=== PATIENT | male | born 1965 ===

== ENCOUNTER 2018-11-05 03:41 | Emergency (ER) | payer BC, SELFPAY ==
[2018-11-05 03:54] VITALS: BP 151/93; PULSE 71; RESP 22; TEMP 37; O2SAT 98; BMI 30.5
--- NOTE | 2018-11-05 03:56 | ED.GENADULT ---
HPI - General Adult General Chief complaint: Abdominal Pain Stated complaint: right side discomfort Time Seen by Provider: 11/05/18 03:45 Source: patient Mode of arrival: Ambulatory Limitations: no limitations History of Present Illness HPI narrative: Patient is a 53-year-old male here for evaluation of right upper quadrant abdominal pain. Patient states that it started this evening. Has had some nausea but no vomiting. No bowel symptoms. No urinary symptoms. Has had prior abdominal surgeries. Had a intussusception when he was a child. Still has his gallbladder but has had his appendix removed. States it is worse with palpation. Not worse with breathing. Related Data Home Medications Medication Instructions Recorded Confirmed mycophenolate mofetil 500 mg PO DAILY 11/05/18 11/05/18 Previous Rx's Medication Instructions Recorded ondansetron 4 mg PO Q6H PRN #14 tab 11/05/18 tramadol [Ultram] 50 mg PO Q6H PRN #14 tab 11/05/18 Allergies Allergy/AdvReac Type Severity Reaction Status Date / Time No Known Drug Allergies Allergy Verified 11/05/18 03:58 Review of Systems Constitutional Constitutional: Denies fever(s) Cardiovascular Cardiovascular: Denies chest pain and Denies dyspnea Respiratory Respiratory: Denies dyspnea Gastrointestinal Gastrointestinal: Reports abdominal pain, Denies change in stool character, Reports nausea and Denies vomiting Genitourinary Genitourinary: Denies dysuria Musculoskeletal Musculoskeletal: Denies myalgias and Denies arthralgias Integumentary/Breasts Skin/Breast: Denies lesions and Denies rash Neurologic Neurologic: Denies behavioral changes Psychiatric Psychiatric: Denies behavioral changes Hematologic/Lymphatic Hematologic/Lymphatic: Denies easy bleeding and Denies easy bruising [facility] Medical History Intussusception (Acute) Surgical History Hx of appendectomy (Acute) Social History Smoking Status: Never smoker Social History Smoking Status: Never smoker Exam Initial Vital Signs Initial Vital Signs: Vital Signs Temperature 98.6 F 11/05/18 03:54 Pulse Rate 71 11/05/18 03:54 Respiratory Rate 22 11/05/18 03:54 Blood Pressure 151/93 H 11/05/18 03:54 Pulse Oximetry 98 11/05/18 03:54 Const General: cooperative, well developed and well groomed Orientation: alert, awake and oriented x3 HENMT Head: normal to inspection and normocephalic Resp Effort & Inspection: normal respiratory effort Auscultation: clear to auscultation bilaterally Cardio Rate: regular rate Rhythm: regular rhythm GI Inspection: non-distended Palpation: soft, No firm and tender (Right upper quadrant positive Whiting sign) Skin Lesions: no lesions Rashes: no rashes Neuro General: alert, awake and oriented x3 Cognition: normal cognition Speech: speech normal Motor: muscle tone normal throughout Sensory Exam: no sensory deficits noted Extrem General: normal to inspection and capillary refill normal Psych Appearance: grossly normal and well kempt Course Orders Ordered: ED Orders 11/05/18 03:54 EKG-12 Lead Stat 11/05/18 04:10 Complete Blood Count AUTO DIFF Stat Comprehensive Metabolic Panel Stat Lipase Stat 11/05/18 04:23 US abdomen limited Stat Discontinued Medications Ketorolac Tromethamine (Toradol) 30 mg IV NOW ONE Stop: 11/05/18 04:24 Last Admin: 11/05/18 05:03 Dose: 30 mg Documented by: GEORGINA Vital Signs Vital signs: Vital Signs - 8 hr 11/05/18 03:54 11/05/18 05:08 Temperature 98.6 F Pulse Rate 71 79 Respiratory Rate 22 20 Blood Pressure 151/93 H Blood Pressure [Right Arm] 142/89 H Pulse Oximetry 98 98 Medical Decision Making Lab Data Lab results reviewed: Yes I reviewed the patient's lab results. Result diagrams: 11/05/18 04:10 11/05/18 04:10 Labs: Lab Results 11/05/18 11/05/18 11/05/18 Range/Units 04:10 04:10 04:10 WBC 10.7 (4.5-11.0) X10^3/uL RBC 4.99 (4.5-5.9) X10^6/uL Hgb 15.2 (13.5-17.5) g/dL Hct 44.4 (41-53) % MCV 89.1 (80-100) fL MCH 30.4 (26-34) PG MCHC 34.2 (30-36) % RDW 14.7 (11.6-14.8) % Plt Count 237 (150-400) X10^3/uL Neut % (Auto) 66.7 (50-75) % Lymph % (Auto) 22.5 L (25-40) % [place]y % (Auto) 9.1 (3-14) % Eos % (Auto) 1.3 L (2-4) % Baso % (Auto) 0.4 (0-2) % Neut # (Auto) 7100 H (1200-4160) /uL Lymph # (Auto) 2400 (9360-4053) /uL [place]y # (Auto) 1000 H (0-900) /uL Eos # (Auto) 100 (0-450) /uL Baso # (Auto) 0 (0-100) /uL Sodium 138 (137-145) mmol/L Potassium 3.9 (3.4-5.1) mmol/L Chloride 100 (98-107) mmol/L Carbon Dioxide 28 (22-32) mmol/L BUN 13 (9-20) mg/dL Creatinine 0.70 (0.66-1.25) mg/dL Estimated GFR > 60.0 (>60) mL/min BUN/Creatinine Ratio 18.6 (6-22) Glucose 103 H (70-100) mg/dL Calcium 9.1 (8.4-10.2) mg/dL Total Bilirubin 0.6 (0.2-1.3) mg/dL AST 33 (17-59) IU/L ALT 34 (21-72) IU/L Alkaline Phosphatase 99 (38-126) U/L Total Protein 7.1 (6.3-8.2) g/dL Albumin 4.0 (3.5-5.0) g/dL Globulin 3.1 (1.7-4.1) g/dL Albumin/Globulin Ratio 1.3 (1.0-2.8) Lipase 109 (23-300) U/L Imaging Data US - abdomen: Radiologist's impression: Preliminary read Mobile gallstones and sludge within the gallbladder. Wall thickening up to 5 mm. Positive Whiting sign. No pericholecystic fluid. Common bile duct is not seen. Early acute cholecystitis ECG Data Attestation: I personally reviewed and interpreted this ECG as follows: Prior ECG tracings: not available for review Interpretation: Sinus rhythm Ventricular rate of 67 Left axis deviation Right bundle branch block Normal QRS Normal QTC Nonspecific ST T wave changes MDM Narrative Medical decision making narrative: Patient is symptom-free after the Toradol. Is afebrile, normal white blood cell, normal LFTs, normal lipase, ultrasound does show gallstones. Wall thickening of 5 mm. No pericholecystic fluid. Unable to visualize the common bile duct. Patient is visiting this area from [place]. I did discuss the case with with General surgery who did agree with the plan of providing good return precautions, symptom treatment, and having the patient follow up with his primary provider when he returns home. Informed the patient that he should avoid foods that have crease in oils. Will send home with symptom treatment. Was told to come back if he starts to have worsening pain or fevers. Informed him that later today he should call his primary provider even before he returns home to establish a follow-up for when he returns home. Patient expressed understanding and agreement with plan. Discharge Plan Departure Patient Disposition: Home Clinical Impression: Biliary colic Instructions: Gallstones (Alternative Therapy), DI for Gallstones Activity Restrictions/Additional Instructions: I recommend that later today you contact your primary care provider even before you return home to establish a follow-up visit when you return home. Also recommend that you eat a low-fat diet and avoid foods that have grease and oil. Use the medications as needed and as directed. Return to the emergency department for any new symptoms, worsening symptoms, fevers, inability to tolerate oral intake, or any other concerning symptoms. Prescriptions: New ondansetron 4 mg tablet,disintegrating 4 mg PO Q6H PRN (Reason: nausea and vomiting) Qty: 14 RF: 0 tramadol [Ultram] 50 mg tablet 50 mg PO Q6H PRN (Reason: pain) Qty: 14 RF: 0 No Action mycophenolate mofetil 500 mg tablet 500 mg PO DAILY RF: 0
[2018-11-05 04:17] LABS: Add Manual Diff / Slide Review NO; Basophils Absolute Auto 0 /uL (0-100); Basophils Percent Auto 0.4 % (0-2); Eosinophils Absolute Auto 100 /uL (0-450); Eosinophils Percent Auto 1.3 % (2-4); Hematocrit 44.4 % (41-53); Hemoglobin 15.2 g/dL (13.5-17.5); Lymphocytes Absolute Auto 2400 /uL (1100-4500); Lymphocytes Percent Auto 22.5 % (25-40); Mean Corpuscular HGB Conc 34.2 % (30-36); Mean Corpuscular Hemoglobin 30.4 PG (26-34); Mean Corpuscular Volume 89.1 fL (80-100); Monocytes Absolute Auto 1000 /uL (0-900); Monocytes Percent Auto 9.1 % (3-14); Neutrophils Absolute Auto 7100 /uL (1500-7000); Neutrophils Percent Auto 66.7 % (50-75); Platelet Count 237 X10^3/uL (150-400); Red Blood Cell Count 4.99 X10^6/uL (4.5-5.9); Red Cell Distribution Width 14.7 % (11.6-14.8); White Blood Cell Count 10.7 X10^3/uL (4.5-11.0)
--- NOTE | 2018-11-05 04:23 | DI.US.S_ITS ---
PROCEDURE: US ABDOMEN LIMITED INDICATIONS: RIGHT UPPER QUADRANT EVALUATE FOR GALLBLADDER PATHOLOGY TECHNIQUE: Real-time scanning was performed of the abdominal and retroperitoneal organs, with image documentation. COMPARISON: None. FINDINGS: Liver: Liver is normal in size and demonstrates increased echotexture. There is focal fat sparing near the gallbladder fossa measuring 2.7 x 0.8 x 2.2 cm. Gallbladder: There are gallstones. Gallbladder wall appears thickened measuring up to 5 mm. No pericholecystic fluid collection. There is sonographic Whiting sign. Biliary ducts: Intrahepatic bile ducts are non-dilated. Extrahepatic bile duct is suboptimally visualized. Pancreas: Not well-seen. Miscellaneous: No free abdominal fluid. IMPRESSION: 1. Cholelithiasis. There is no blood or thickening and sonographic Whiting sign, suspicious for early acute cholecystitis. No pericholecystic fluid collections. 2. Diffusely increased hepatic echotexture. This finding is most likely secondary to hepatic fatty infiltration although other hepatocellular disease may have a similar appearance. Recommend clinical correlation. 3. Focal fat sparing near the operative fossa. 4. Pancreas not well-seen. 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 Dictated by: Baron Ashley M.D. on 11/05/2018 at 9:13 Approved by: Baron Ashley M.D. on 11/05/2018 at 9:21
[2018-11-05 04:29] LABS: Alanine Aminotransferase 34 IU/L (21-72); Albumin Globulin Ratio 1.3 (1.0-2.8); Alkaline Phosphatase 99 U/L (38-126); Aspartate Aminotransferase 33 IU/L (17-59); BUN Creatinine Ratio 18.6 (6-22); Bilirubin Total 0.6 mg/dL (0.2-1.3); Blood Urea Nitrogen 13 mg/dL (9-20); Calcium 9.1 mg/dL (8.4-10.2); Carbon Dioxide 28 mmol/L (22-32); Chloride 100 mmol/L (98-107); Estimated Glomerular Filt Rate > 60.0 mL/min (>60); Globulin 3.1 g/dL (1.7-4.1); Glucose 103 mg/dL (70-100); HEMOLYSIS < 15 (0-50); Potassium 3.9 mmol/L (3.4-5.1); Sodium 138 mmol/L (137-145); Total Protein 7.1 g/dL (6.3-8.2)
[2018-11-05 04:30] LABS: Lipase 109 U/L (23-300)
[2018-11-05] MEDS: KETOROLAC 60 MG/2 ML VIAL 30 MG IV (05:03)
[2018-11-05 05:08] VITALS: BP 142/89; PULSE 79; RESP 20; O2SAT 98
[2018-11-05 06:38] VITALS: BP 124/88; PULSE 64; RESP 26; O2SAT 95
== END 2018-11-05 06:42 | disposition home or self-care (01) ==
PROVIDERS: Emergency Provider Emergency Medicine
DX: K80.50 Calculus of bile duct without cholangitis or cholecystitis without obstruction (principal)
CPT/HCPCS: 36415; 76705; 80053; 83690; 85025; 93005; 93010; 96374; 99282; 99285; J1885